=== PATIENT | female | born 1975 | race Caucasian/White ===

== ENCOUNTER 2019-03-13 14:09 | Emergency (ER) | payer SELFPAY ==
[2019-03-13] MEDS ORDERED: CLINDAMYCIN IV 150 MG/ML (4 mL) VIAL ONE (15:58)
[2019-03-13] MEDS ORDERED: HYDROCODONE/APAP 10/325 TAB ONE (15:58)
--- NOTE | 2019-03-13 16:05 | EDPHYS ---
Physician Documentation [facility] Name: Yoli Alvarado Age: 43 yrs Sex: Female : 1975 Arrival Date: 03/13/2019 Time: 14:12 Bed 10 Private MD: ED Physician Ralf Coughlin HPI: 03/13 16:03 This 43 yrs old Female presents to ER via Ambulatory with complaints of pm1 Facial Swelling. 16:03 The patient presents with pain. The problem is located in the upper right first pm1 bicuspid and upper right cuspid. Onset: The symptoms/episode began/occurred 2 day(s) ago. Duration: The symptoms are continuous. Modifying factors: The symptoms are alleviated by nothing, the symptoms are aggravated by nothing. Associated signs and symptoms: Pertinent positives: swelling, facial, Pertinent negatives: inability to eat, inability to open mouth. The patient has not experienced similar symptoms in the past. The patient has not recently seen a physician. Historical: - Allergies: 14:43 No Known Allergies; sg - Home Meds: 14:43 Hydrocodone-Acetaminophen Oral [Active]; sg - PMHx: 14:43 chronic back pain; sg - PSHx: 14:43 Tubal ligation; sg - Immunization history:: Adult Immunizations up to date. - Social history:: Smoking status: Patient/guardian denies using tobacco. - Ebola Screening: : Patient negative for fever greater than or equal to 101.5 degrees Fahrenheit, and additional compatible Ebola Virus Disease symptoms Patient denies exposure to infectious person Patient denies travel to an Ebola-affected area in the 21 days before illness onset No symptoms or risks identified at this time. ROS: 16:03 Constitutional: Negative for fever, chills, and weight loss, Eyes: Negative for injury, pm1 pain, redness, and discharge. 16:03 Neck: Negative for injury, pain, and swelling, Cardiovascular: Negative for chest pain, palpitations, and edema, Respiratory: Negative for shortness of breath, cough, wheezing, and pleuritic chest pain, Abdomen/GI: Negative for abdominal pain, nausea, vomiting, diarrhea, and constipation, Back: Negative for injury and pain, MS/Extremity: Negative for injury and deformity, Skin: Negative for injury, rash, and discoloration, Neuro: Negative for headache, weakness, numbness, tingling, and seizure. 16:03 ENT: Positive for dental pain, Negative for ear pain, sore throat, difficulty swallowing, difficulty handling secretions, hoarseness. Exam: 16:03 Constitutional: This is a well developed, well nourished patient who is awake, alert, pm1 and in no acute distress. Head/Face: Normocephalic, atraumatic. Eyes: Pupils equal round and reactive to light, extra-ocular motions intact. Lids and lashes normal. Conjunctiva and sclera are non-icteric and not injected. Cornea within normal limits. Periorbital areas with no swelling, redness, or edema. 16:03 Neck: Trachea midline, no thyromegaly or masses palpated, and no cervical lymphadenopathy. Supple, full range of motion without nuchal rigidity, or vertebral point tenderness. No Meningismus. Chest/axilla: Normal chest wall appearance and motion. Nontender with no deformity. No lesions are appreciated. Cardiovascular: Regular rate and rhythm with a normal S1 and S2. No gallops, murmurs, or rubs. Normal PMI, no JVD. No pulse deficits. Respiratory: Lungs have equal breath sounds bilaterally, clear to auscultation and percussion. No rales, rhonchi or wheezes noted. No increased work of breathing, no retractions or nasal flaring. Back: No spinal tenderness. No costovertebral tenderness. Full range of motion. Skin: Warm, dry with normal turgor. Normal color with no rashes, no lesions, and no evidence of cellulitis. MS/ Extremity: Pulses equal, no cyanosis. Neurovascular intact. Full, normal range of motion. 16:03 ENT: External ear(s): are unremarkable, Ear canal(s): are normal, TM's: are normal, Nose: is normal, Mouth: Lips: normal, Oral mucosa: normal, Gums: normal with healthy appearance, abscess, is not appreciated, Dental exam: pain, that is moderate, specifically in the upper right first bicuspid (#5) and upper right cuspid (#6), teeth rotten to gum line. 16:03 Neuro: Orientation: is normal, Motor: is normal, moves all fours. Vital Signs: 14:37 BP 147 / 91; Pulse 111; Resp 17; Temp 98.1; Pulse Ox 99% on R/A; sg MDM: 15:24 Patient medically screened. pm1 16:03 Data reviewed: vital signs. Data interpreted: Pulse oximetry: on room air is 99 %. pm1 Interpretation: normal. Counseling: I had a detailed discussion with the patient and/or guardian regarding: the historical points, exam findings, and any diagnostic results supporting the discharge/admit diagnosis, the need for outpatient follow up, for definitive care, a dentist, to return to the emergency department if symptoms worsen or persist or if there are any questions or concerns that arise at home. Administered Medications: 16:03 Drug: [place] 10 mg-325 mg 1 tabs Route: PO; iw 16:03 Drug: Clindamycin 600 mg Route: IM; Site: left ventrogluteal; iw Disposition: 03/14 09:02 Co-signature as Attending Physician, Ralf Coughlin MD I agree with the assessment and kdr plan of care. Disposition: 03/13/19 16:04 Discharged to Home. Impression: Periapical abscess without sinus. - Condition is Stable. - Discharge Instructions: Dental Abscess. - Prescriptions for Clindamycin HCl 300 mg Oral Capsule - take 1 capsule by ORAL route every 6 hours for 10 days; 40 capsule. Tylenol- Codeine #3 300-30 mg Oral Tablet - take 2 tablets by ORAL route every 6 hours As needed; 20 tablet. - Medication Reconciliation Form, Thank You Letter, Antibiotic Education, Prescription Opioid Use form. - Follow up: Emergency Department; When: As needed; Reason: Worsening of condition. Follow up: Private Physician; When: 2 - 3 days; Reason: Recheck today's complaints, Continuance of care, Re-evaluation by your physician. - Problem is new. - Symptoms have improved. Signatures: Wilson Rendon RN RN sg Ralf Coughlin MD MD kdr Radha Tyler RN RN iw Ash Gutierrez NP RN EXAMINER pm1 Corrections: (The following items were deleted from the chart) 03/13 16:18 16:04 03/13/2019 16:04 Discharged to Home. Impression: Periapical abscess without iw sinus. Condition is Stable. Forms are Medication Reconciliation Form, Thank You Letter, Antibiotic Education, Prescription Opioid Use. Follow up: Emergency Department; When: As needed; Reason: Worsening of condition. Follow up: Private Physician; When: 2 - 3 days; Reason: Recheck today's complaints, Continuance of care, Re-evaluation by your physician. Problem is new. Symptoms have improved. pm1
--- NOTE | 2019-03-13 16:05 | ER ---
Nurse's Notes [facility] Name: Yoli Alvarado Age: 43 yrs Sex: Female : 1975 Arrival Date: 03/13/2019 Time: 14:12 Bed 10 Private MD: Diagnosis: Periapical abscess without sinus Presentation: 03/13 14:19 Presenting complaint: Patient states: Was driving home on Thursday from visiting family, sg noticed a small reddened area. This morning right eye swollen and painful, pt unsure what happened, denies injury or trauma to the eye or face at this time. Transition of care: patient was not received from another setting of care. Onset of symptoms was March 13, 2019. Risk Assessment: Do you want to hurt yourself or someone else? Patient reports no desire to harm self or others. Initial Sepsis Screen: Does the patient meet any 2 criteria? No. Patient's initial sepsis screen is negative. Does the patient have a suspected source of infection? No. Patient's initial sepsis screen is negative. Care prior to arrival: None. 14:19 Method Of Arrival: Ambulatory 14:19 Acuity: AL 4 sg Triage Assessment: 15:10 General: Appears in no apparent distress. Behavior is calm. iw Historical: - Allergies: 14:43 No Known Allergies; sg - Home Meds: 14:43 Hydrocodone-Acetaminophen Oral [Active]; sg - PMHx: 14:43 chronic back pain; sg - PSHx: 14:43 Tubal ligation; sg - Immunization history:: Adult Immunizations up to date. - Social history:: Smoking status: Patient/guardian denies using tobacco. - Ebola Screening: : Patient negative for fever greater than or equal to 101.5 degrees Fahrenheit, and additional compatible Ebola Virus Disease symptoms Patient denies exposure to infectious person Patient denies travel to an Ebola-affected area in the 21 days before illness onset No symptoms or risks identified at this time. Screenin:15 Abuse screen: Denies threats or abuse. Denies injuries from another. Nutritional iw screening: No deficits noted. Tuberculosis screening: No symptoms or risk factors identified. Fall Risk None identified. Assessment: 15:00 General: Appears in no apparent distress. Behavior is calm, cooperative. Pain: iw Complains of pain in face. Neuro: Level of Consciousness is awake, alert, obeys commands, Oriented to person, place, time, situation, Moves all extremities. Cardiovascular: Patient's skin is warm and dry. Respiratory: Respiratory effort is even, unlabored, Respiratory pattern is regular, symmetrical. Derm: Skin is intact. Musculoskeletal: Range of motion: intact in all extremities. Vital Signs: 14:37 BP 147 / 91; Pulse 111; Resp 17; Temp 98.1; Pulse Ox 99% on R/A; ED Course: 14:12 Patient arrived in ED. mr 14:20 Triage completed. sg 14:20 Arm band placed on. sg 14:25 Patient has correct armband on for positive identification. iw 15:13 Ash Gutierrez NP is PHCP. pm1 15:13 Ralf Coughlin MD is Attending Physician. pm1 15:24 Radha Tyler, RN is Primary Nurse. iw 16:17 No provider procedures requiring assistance completed. Patient did not have IV access iw during this emergency room visit. Administered Medications: 16:03 Drug: [place] 10 mg-325 mg 1 tabs Route: PO; iw 16:03 Drug: Clindamycin 600 mg Route: IM; Site: left ventrogluteal; iw Outcome: 16:04 Discharge ordered by MD. pm1 16:17 Discharged to home ambulatory, with family. iw 16:17 Condition: good 16:17 Discharge instructions given to patient, family, Instructed on discharge instructions, follow up and referral plans. medication usage, Demonstrated understanding of instructions, follow-up care, medications, Prescriptions given X 2. 16:18 Patient left the ED. iw Signatures: Wilson Rendon RN RN Lion Eva mr Radha Tyler RN RN Ash Gutierrez NP CELLULAR BIOLOGIST pm1 Corrections: (The following items were deleted from the chart) 14:43 14:19 Presenting complaint: Patient states: Was driving home on Thursday from visiting family, noticed a small reddened area. This morning left eye swollen and painful, pt unsure what happened, denies injury or trauma to the eye or face at [facility]
[2019-03-13 18:16] VITALS: BP 147/91; TEMP 98.1; O2SAT 99
== END 2019-03-13 16:18 | disposition home or self-care (01) ==
LOC: ER 14:09
DX: K04.7 Periapical abscess without sinus (principal)
CPT/HCPCS: 96372; 99283; S0077

== ENCOUNTER 2020-06-11 11:40 | Emergency (ER) | payer SELFPAY ==
--- NOTE | 2020-06-11 13:15 | ER ---
Nurse's Notes [facility] Name: Yoli Alvarado Age: 44 yrs Sex: Female : 1975 Arrival Date: 06/11/2020 Time: 11:43 Bed Waiting Private MD: Diagnosis: Periapical abscess without sinus Presentation: 06/11 11:50 Chief complaint: Patient states: L upper jaw tooth pain for 2 days. No fever. Swelling ll1 to L side of face for 1 day. Has a dentist appointment for 2 weeks from now. Coronavirus screen: Client denies travel out of the [place] in the last 14 days. At this time, the client does not indicate any symptoms associated with coronavirus-19. Ebola Screen: Patient denies travel to an Ebola-affected area in the 21 days before illness onset. Initial Sepsis Screen: Does the patient meet any 2 criteria? HR > 90 bpm. No. Patient's initial sepsis screen is negative. Does the patient have a suspected source of infection? Yes: Other: tooth/jaw pain and swelling. Risk Assessment: Do you want to hurt yourself or someone else? Patient reports no desire to harm self or others. Onset of symptoms was June 10, 2020. 11:50 Method Of Arrival: Ambulatory ll1 11:50 Acuity: AL 4 ll1 Triage Assessment: 13:10 General: Appears uncomfortable, Behavior is calm, cooperative, appropriate for age. ll1 Pain: Complains of pain in L upper jaw Quality of pain is described as aching. EENT: L upper jaw tooth pain and swelling for 2 days. . Reports tenderness L upper jaw. Neuro: No deficits noted. Cardiovascular: No deficits noted. Respiratory: No deficits noted. 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 - Social history:: Smoking status: Patient reports the use of cigarette tobacco products, smokes one-half pack cigarettes per day. Screenin:11 Abuse screen: Denies threats or abuse. Nutritional screening: No deficits noted. ll1 Tuberculosis screening: No symptoms or risk factors identified. Fall Risk None identified. Total Nova Fall Scale indicates No Risk (0-24 pts). Vital Signs: 11:50 BP 150 / 99; Pulse 93; Resp 16; Temp 97.6; Pulse Ox 100% ; Weight 59.87 kg; Height 5 ll1 ft. 3 in. (160.02 cm); Pain 7/10; 11:50 Body Mass Index 23.38 (59.87 kg, 160.02 cm) ll1 ED Course: 11:43 Patient arrived in ED. mr 11:49 Arm band placed on. ll1 11:52 Triage completed. ll1 11:53 Patient notified of wait time. ll1 13:11 Patient has correct armband on for positive identification. Call light in reach. Side ll1 rails up X 1. 13:11 No provider procedures requiring assistance completed. Patient did not have IV access ll1 during this emergency room visit. 13:13 rBuce Vizcarra PA is PHCP. yan 13:13 Jersey Licea MD is Attending Physician. jrMarcio Administered Medications: No medications were administered Outcome: 13:14 Discharge ordered by . jrMarcio 13:18 Discharged to home ambulatory. ll1 13:18 Condition: stable 13:18 Discharge instructions given to patient, Instructed on discharge instructions, follow up and referral plans. medication usage, Demonstrated understanding of instructions, follow-up care, medications, Prescriptions given X 2. 13:19 Patient left the ED. ll1 Signatures: Lion Eva mr Bruce Vizcarra PA PA jr8 Jing Botello RN RN 1
--- NOTE | 2020-06-11 13:15 | EDPHYS ---
Physician Documentation [facility] Name: Yoli Alvarado Age: 44 yrs Sex: Female : 1975 Arrival Date: 06/11/2020 Time: 11:43 Bed Waiting Private MD: NENA Physician Jersey Licea HPI: 06/11 13:16 This 44 yrs old Female presents to ER via Ambulatory with complaints of jr8 Facial Swelling. 13:16 The patient presents with pain, swelling. The problem is located in the mouth. Onset: jr8 The symptoms/episode began/occurred gradually, 2 day(s) ago. Duration: The symptoms are continuous. Modifying factors: The symptoms are alleviated by nothing, the symptoms are aggravated by chewing. Associated signs and symptoms: The patient has no apparent associated signs or symptoms. Severity of symptoms: At their worst the symptoms were moderate, in the emergency department the symptoms are unchanged. The patient has experienced a previous episode. The patient has not recently seen a physician. Patient stated that she has had dental fracture at pain site for some time. Started to swell and become painful over the past couple of days. Dentist did not have appointment for some time. 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 - Social history:: Smoking status: Patient reports the use of cigarette tobacco products, smokes one-half pack cigarettes per day. ROS: 13:16 Eyes: Negative for injury, pain, redness, and discharge, Neck: Negative for injury, jr8 pain, and swelling, Cardiovascular: Negative for chest pain, palpitations, and edema, Respiratory: Negative for shortness of breath, cough, wheezing, and pleuritic chest pain, Abdomen/GI: Negative for abdominal pain, nausea, vomiting, diarrhea, and constipation, Back: Negative for injury and pain, MS/Extremity: Negative for injury and deformity, Skin: Negative for injury, rash, and discoloration, Neuro: Negative for headache, weakness, numbness, tingling, and seizure. 13:16 ENT: Positive for dental pain, Gum pain Exam: 13:16 Eyes: Pupils equal round and reactive to light, extra-ocular motions intact. Lids and jr8 lashes normal. Conjunctiva and sclera are non-icteric and not injected. Cornea within normal limits. Periorbital areas with no swelling, redness, or edema. Neck: Trachea midline, no thyromegaly or masses palpated, and no cervical lymphadenopathy. Supple, full range of motion without nuchal rigidity, or vertebral point tenderness. No Meningismus. Cardiovascular: Regular rate and rhythm with a normal S1 and S2. No gallops, murmurs, or rubs. Normal PMI, no JVD. No pulse deficits. Respiratory: Lungs have equal breath sounds bilaterally, clear to auscultation and percussion. No rales, rhonchi or wheezes noted. No increased work of breathing, no retractions or nasal flaring. Skin: Warm, dry with normal turgor. Normal color with no rashes, no lesions, and no evidence of cellulitis. MS/ Extremity: Pulses equal, no cyanosis. Neurovascular intact. Full, normal range of motion. Neuro: Awake and alert, GCS 15, oriented to person, place, time, and situation. Cranial nerves II-XII grossly intact. Motor strength 5/5 in all extremities. Sensory grossly intact. Cerebellar exam normal. Normal gait. 13:16 Head/face: Noted is swelling, that is mild, of the left cheek and left jaw, tenderness, that is mild, of the left cheek. 13:16 ENT: Dental exam: dental caries, that is moderate, diffusely, fractured teeth are noted, specifically the upper left central incisor (#9), gum swelling, that is moderate, specifically in the upper left central incisor (#9), pain, that is moderate, specifically in the upper left central incisor (#9) and upper left lateral incisor (#10), already open draining abscess noted to gum line over first incisor . Vital Signs: 11:50 BP 150 / 99; Pulse 93; Resp 16; Temp 97.6; Pulse Ox 100% ; Weight 59.87 kg; Height 5 ll1 ft. 3 in. (160.02 cm); Pain 7/10; 11:50 Body Mass Index 23.38 (59.87 kg, 160.02 cm) ll1 MDM: 13:14 Patient medically screened. jr8 13:16 Data reviewed: vital signs, nurses notes, and as a result, I will discharge patient. jr8 Data interpreted: Pulse oximetry: on room air is 100 %. Interpretation: normal. Counseling: I had a detailed discussion with the patient and/or guardian regarding: the historical points, exam findings, and any diagnostic results supporting the discharge/admit diagnosis, the need for outpatient follow up, a dentist, to return to the emergency department if symptoms worsen or persist or if there are any questions or concerns that arise at home. ED course: Helped abscess drain with expression/pressure only. gum line back to baseline. Put patient on NSAID and Abx. To f/u with next available appointment . Administered Medications: No medications were administered Disposition: 19:58 Co-signature as Attending Physician, Jersey Licea MD I agree with the assessment and [facility] plan of care. Disposition: 06/11/20 13:14 Discharged to Home. Impression: Periapical abscess without sinus. - Condition is Stable. - Discharge Instructions: Dental Abscess, Dental Pain. - Prescriptions for Augmentin 875- 125 mg Oral Tablet - take 1 tablet by ORAL route every 12 hours for 10 days; 20 tablet. Ibuprofen 800 mg Oral Tablet - take 1 tablet by ORAL route every 12 hours As needed take with food; 20 tablet. - Medication Reconciliation Form, Thank You Letter, Antibiotic Education, Prescription Opioid Use form. - Follow up: Private Physician; When: 1 week; Reason: Recheck today's complaints, Continuance of care, Re-evaluation by your physician. - Problem is new. - Symptoms have improved. Signatures: Jersey Licea MD MD cha Roszak, Josh, PA PA jr8 Jing Botello RN RN ll1 Corrections: (The following items were deleted from the chart) 13:19 13:14 06/11/2020 13:14 Discharged to Home. Impression: Periapical abscess without ll1 sinus. Condition is Stable. Forms are Medication Reconciliation Form, Thank You Letter, Antibiotic Education, Prescription Opioid Use. Follow up: Private Physician; When: 1 week; Reason: Recheck today's complaints, Continuance of care, Re-evaluation by your physician. Problem is new. Symptoms have improved. jr8
[2020-06-11 13:32] VITALS: BP 150/99; TEMP 97.6; O2SAT 100
== END 2020-06-11 13:19 | disposition home or self-care (01) ==
LOC: ER 11:40
DX: K04.7 Periapical abscess without sinus (principal); F17.210 Nicotine dependence, cigarettes, uncomplicated
CPT/HCPCS: 99282